=== PATIENT | female | born 1950 | race African-American/Black ===

== ENCOUNTER → 2022-01-03 | Day surgery (SDC) | payer OTHER ==
[~2022-01-03] VITALS: Ht 165.1 cm; Wt 100.2 kg
[~2022-01-03] MED LIST: BREO ELLIPTA 11 EACH INH; BRIN5TAB PO; IRBESARTAN300 MG PO; LASIX20 MG PO; METOPROLOL SUCC50 MG PO; NEURONTIN300 MG PO; NITROGLYCERIN1 EACH TOP; OMEPRAZOLE40 MG PO; PRALUENT P75 MG/1 ML SC
== END | disposition home or self-care (01) ==
LOC: FAS 07:04
DX: Z12.11 Encounter for screening for malignant neoplasm of colon (principal); D12.2 Benign neoplasm of ascending colon; K63.5 Polyp of colon; K57.30 Diverticulosis of large intestine without perforation or abscess without bleeding; I25.10 Atherosclerotic heart disease of native coronary artery without angina pectoris; J44.9 Chronic obstructive pulmonary disease, unspecified; E78.5 Hyperlipidemia, unspecified; I10 Essential (primary) hypertension; F31.9 Bipolar disorder, unspecified; M81.0 Age-related osteoporosis without current pathological fracture; Z87.891 Personal history of nicotine dependence; Z80.0 Family history of malignant neoplasm of digestive organs; Z88.2 Allergy status to sulfonamides; Z88.8 Allergy status to other drugs, medicaments and biological substances; Z79.899 Other long term (current) drug therapy
CPT/HCPCS: J2704; J7120